=== PATIENT | male | born 1970 | race Caucasian/White ===

== ENCOUNTER 2018-03-08 10:43 | Day surgery (SDC) | payer OTHER, SELFPAY ==
[2018-02-26 15:14] VITALS: BMI 36.4
[2018-03-08] VITALS (7 sets, daily range): BP systolic 124–163; BP diastolic 59–98; PULSE 61–68; RESP 16; TEMP 36.4–36.9; O2SAT 93–100; BMI 36.0
--- NOTE | 2018-03-08 12:00 | IMM_PTH ---
PATIENT: JASMINE ANGLIN LOC: EN U#:[id number] AGE/SX: 47/M ROOM: RE03/08/[address]: Dr. Jasmine Bhandari MD : 1970 BED: DIS: 03/08/2018 SPEC #: [id number] RECD: 03/10/18 07:51 STATUS: SE REDarek #: [id number] VENKATESH: 03/08/18 12:[address]: Jasmine Bhandari DEPT: IMMUNOHISTOCHEMISTRY RECD BY: Concepcion Wilson ENTERED: 03/10/18 07:52 SP TYPE: IMMUNO OTHR DR: Dr. Julianne Camarena MD Tissues: B - Stomach, NOS Procedures: H Pylori (initial) PHYSICIAN & INSTITUTION [place] [id number] SPECIMEN INFORMATION: Tissue Source: B - Antrum biopsy Clinical Info: Epigastric pain Specimen Number: [id number] CPT code: 60563 METHODOLOGY: Deparaffinized sections of prefer/formalin-fixed tissue or PAP/DQ stained slides are incubated with monoclonal/polyclonal antibodies/oligonucleotide probes. Localization is made via biotin free immunoperoxidase method. Appropriate controls are performed and reacted as expected. Results on target cell population are indicated in the following table: RESULTS: ANTIBODY / CLONE RESULT Block B H Pylori (polyclonal) negative These tests were developed and their performance characteristics determined by [facility]. They may not have been cleared or approved by the U.S. Food and Drug Administration. The FDA has determined that such clearance or approval is not necessary. INTERPRETATION: B. Antrum, biopsy: Negative for Helicobacter pylori organisms. SJ:cele 03/10/18
--- NOTE | 2018-03-08 12:00 | EGD_PTH ---
PATIENT: JASMINE ANGLIN LOC: EN U#:[id number] AGE/SX: 47/M ROOM: RE03/08/[address]: Dr. Jasmine Bhandari MD : 1970 BED: DIS: 03/08/2018 SPEC #: [id number] RECD: 03/08/18 12:38 STATUS: SE VAUGHN #: [id number] VENKATESH: 03/08/18 12:[address]: Jasmine Bhandari DEPT: SURGICAL PATHOLOGY RECD BY: Mark Rogers ENTERED: 03/08/18 13:23 SP TYPE: EGD BIOPSY OTHR DR: Dr. Julianne Camarena MD Tissues: A - Duodenum, NOS B - Gastric mucous membrane C - Esophageal mucous membrane D - Esophageal mucous membrane Procedures: Special Stain Group II Surgery Specimen Level IV Alcian Blue/PAS (control) HEADER OPERATION: Colonoscopy (MOD) PRE-OP DIAGNOSIS: Epigastric pain TISSUE SUBMITTED: A - Duodenum biopsy, B - Antrum biopsy for H. pylori and path, C - Distal esophagus biopsy, D - Mid esophagus biopsy MICROSCOPIC DIAGNOSIS A. Duodenum, biopsy: Fragments of duodenal mucosa with focal ulceration and associated acute inflammation and mild Sam gland hyperplasia. B. Antrum, biopsy: Mild gastritis. See microscopic description and comment. C. Distal esophagus, biopsy: Fragments of gastroesophageal mucosa with chronic inflammation. Intestinal metaplasia (goblet cell metaplasia) is not identified. See comment. D. Mid esophagus, biopsy: Fragments of squamous epithelium, no pathologic diagnosis. SJ:cele 03/10/18 COMMENT B. The results of immunohistochemistry for Helicobacter pylori will be reported separately ([id number]). C. Alcian blue/PAS stain with matched control is used in the evaluation of the specimen. The specimen predominantly consists of squamous epithelium. MICROSCOPIC DESCRIPTION Slides are reviewed. B. The specimen shows fragments of gastric mucosa with chronic inflammatory cell infiltrates in the lamina propria consisting of lymphocytes and plasma cells, consistent with mild chronic gastritis. GROSS DESCRIPTION A - Received in fixative is one container labeled with the patient's name and designated duodenal biopsy. The specimen consists of two irregular fragments of light mota soft tissue that in aggregate measure 0.6 x 0.6 x 0.1 cm. The specimen is totally submitted in one cassette. B - Received in fixative is one container labeled with the patient's name and designated antrum biopsy. The specimen consists of one irregular fragment of light mota soft tissue that measures 0.3 x 0.3 x 0.1 cm. The specimen is totally submitted in one cassette. C - Received in fixative is one container labeled with the patient's name and designated distal esophagus biopsy. The specimen consists of multiple irregular fragments of light mota soft tissue that in aggregate measure 1.5 x 0.5 x 0.1 cm. The specimen is totally submitted in one cassette. D - Received in fixative is one container labeled with the patient's name and designated mid esophagus biopsy. The specimen consists of two irregular fragments of light mota soft tissue that in aggregate measure 0.6 x 0.2 x 0.1 cm. The specimen is totally submitted in one cassette. / AM:cele 03/08/18 TC:2 CPT: 17523 x4, 91442
--- NOTE | 2018-03-08 12:19 | OP.ENDO_ITS ---
Patient Name: Jimmie Murrell Procedure Date: 03/08/2018 11:51 AM Date of : 1970 Age: 47 Procedure: Upper GI endoscopy Indications: Epigastric abdominal pain Providers: Jimmie Bhandari MD Referring MD: Jimmie Bhandari MD Medicines: Midazolam 4.5 mg IV, Meperidine 100 mg IV Complications: No immediate complications. Procedure: Pre-Anesthesia Assessment: - Prior to the procedure, a History and Physical was performed, and patient medications and allergies were reviewed. The patient's tolerance of previous anesthesia was also reviewed. The risks and benefits of the procedure and the sedation options and risks were discussed with the patient. All questions were answered, and informed consent was obtained. Prior Anticoagulants: The patient has taken no previous anticoagulant or antiplatelet agents. ASA Grade Assessment: II - A patient with mild systemic disease. After reviewing the risks and benefits, the patient was deemed in satisfactory condition to undergo the procedure. After obtaining informed consent, the endoscope was passed under direct vision. Throughout the procedure, the patient's blood pressure, pulse, and oxygen saturations were monitored continuously. The gastroscope was introduced through the mouth, and advanced to the second part of duodenum. The upper GI endoscopy was accomplished without difficulty. The patient tolerated the procedure well. Moderate Sedation: Moderate (conscious) sedation was personally administered by the endoscopist. The following parameters were monitored: oxygen saturation, heart rate, blood pressure, and response to care. Total physician intraservice time was 15 minutes. Scope In: 12:06:06 PM Scope Out: 12:13:29 PM Total Procedure Duration Time 0 hours 7 minutes 23 seconds Findings: LA Grade A (one or more mucosal breaks less than 5 mm, not extending between tops of 2 mucosal folds) esophagitis with no bleeding was found 42 cm from the incisors. Biopsies were taken with a cold forceps for histology. The Z-line was variable and was found 42 cm from the incisors. Diffuse mildly erythematous mucosa without bleeding was found in the gastric antrum. Biopsies were taken with a cold forceps for histology. The examined duodenum was normal. Biopsies were taken with a cold forceps for histology. The mid esophagus was normal. Biopsies were taken with a cold forceps for histology. Impression: - LA Grade A reflux esophagitis. Biopsied. Very small hiatal hernia - Z-line variable, 42 cm from the incisors. - Erythematous mucosa in the antrum. Biopsied. - Normal examined duodenum. Biopsied. - Normal mid esophagus. Biopsied. Recommendation: - Discharge patient to home. - Resume previous diet. - Continue present medications. - Telephone my office for pathology results in 1 week. Endoscopic findings were mild but not competely normal. Might correlate with symptoms. Will await pathology Procedure Code(s): --- Professional --- 36737, Esophagogastroduodenoscopy, flexible, transoral; with biopsy, single or multiple 64725, 59, Moderate sedation services provided by the same physician or other qualified health director day care center performing the diagnostic or therapeutic service that the sedation supports, requiring the presence of an independent trained observer to assist in the monitoring of the patient's level of consciousness and physiological status; initial 15 minutes of intraservice time, patient age 5 years or older Diagnosis Code(s): --- Professional --- K21.0, Gastro-esophageal reflux disease with esophagitis K22.8, Other specified diseases of esophagus K31.89, Other diseases of stomach and duodenum R10.13, Epigastric pain CPT copyright 2017 [employer]. All rights reserved. The codes documented in this report are preliminary and upon hcc coders review may be revised to meet current compliance requirements. Jimmie Bhandari MD 03/08/2018 12:19:16 PM This report has been signed electronically. Number of Addenda: 0 Note Initiated On: 03/08/2018 11:51 AM
== END 2018-03-08 13:16 | disposition home or self-care (01) ==
LOC: EN 10:44 → AC 10:46
PROVIDERS: Referring Provider Surgery; Visit Provider Surgery
PROC: 0DJD8ZZ Inspection of Lower Intestinal Tract, Via Natural or Artificial Opening Endoscopic (ICD-10-PCS; CPT 45378; principal; 2018-03-08 11:55)
DX: K21.0 Gastro-esophageal reflux disease with esophagitis (principal); K29.50 Unspecified chronic gastritis without bleeding; K31.89 Other diseases of stomach and duodenum; K44.9 Diaphragmatic hernia without obstruction or gangrene; R10.13 Epigastric pain; Z87.891 Personal history of nicotine dependence
CPT/HCPCS: 43239; 88305; 88313; 88342; 99152; 99153; J7120

== ENCOUNTER 2019-10-24 06:29 | Day surgery (SDC) | payer OTHER, SELFPAY ==
[2018-03-08 11:06] VITALS: BMI 36.0
[2019-10-24] VITALS (8 sets, daily range): BP systolic 101–143; BP diastolic 57–85; PULSE 57–73; RESP 16; TEMP 36.3–37.1; O2SAT 95–100; BMI 37.4
[2019-10-24] MEDS: Lactated Ringers 1,000 ML 100 ML IV (07:19)
--- NOTE | 2019-10-24 07:50 | HP.PCM_ITS ---
Problem List (1) Screening for intestinal cancer Status: Acute History of Present Illness Date of Admission: 10/24/19 The patient is a 49 year old M who presents for screening colonoscopy today. He believes he had one in 2006 when I assisted him with a hemorrhoidectomy. He denies bright red blood per rectum or melena. No family history of colon cancer. He otherwise states that he enjoys stable health. He presents on his own volition through our open access. Past Medical History Medical History: Medical History (Last Reviewed 02/26/18 @ 15:13 by Rachana Cannon) Epigastric pain (Acute) R10.13 Epigastric abdominal pain R10.13 GERD (gastroesophageal reflux disease) K21.9 Allergies No Known Allergies Allergy (Unverified 10/21/19 11:36) Home Medications: Ambulatory Orders Medication Instructions Recorded lisinopril 20 mg tablet 20 mg PO DAILY 02/26/18 Esomeprazole Magnesium [Nexium] 20 mg PO DAILY 10/21/19 Surgical History: Surgical History (Last Reviewed 02/26/18 @ 15:13 by Rachana Cannon) History of hemorrhoidectomy Z98.890 History of hernia repair Z98.890, Z87.19 Smoking Status: Current every day smoker Tobacco Use: Chew Review of Systems Constitutional: Denies: Fever Cardiovascular: Denies: Chest Pain Respiratory: Denies: Cough Gastrointestinal: Denies: Abdominal Pain, Melena VTE Information - Inpt Only VTE Present on Admission: No Patient Problems: Active and Suspected Problems (Last Reviewed 02/26/18 @ 15:13 by Rachana Cannon) Screening for intestinal cancer (Acute) - Physical Exam Vitals/I&O's: Vital Signs Temp Pulse BP Pulse Ox 97.3 F L 64 143/76 H 96 10/24/19 07:01 10/24/19 07:01 10/24/19 07:01 10/24/19 07:01 Oxygen Delivery Method Room Air Weight: 246 lb 0.574 oz Body Mass Index (BMI) 37.4 General: Alert, Oriented x3, Cooperative, No apparent distress Oral: Moist Mucosa Lungs: Clear to auscultation, Normal air movement Cardiovascular: Regular rate, Regular Rhythm Abdomen: Bowel Sounds Present, Soft, Non Tender Extremities: No Calf Tenderness Neurological: - - Normal cognition Psych/Mental Status: Normal Affect Current Medications Lactated Ringer's () 1,000 mls @ 100 mls/hr IV .Q10H RICHARD Last Admin: 10/24/19 07:19 Dose: 100 mls/hr Documented by: Assessment/Plan All Active Problems (Last Reviewed 02/26/18 @ 15:13 by Rachana Cannon) Screening for intestinal cancer (Acute) Epigastric pain (Acute) I recommended the patient a screening colonoscopy with possible biopsy or polypectomy is indicated. He is aware of the technique, benefit, risk, alternatives. He has had an opportunity to ask and have questions answered. We will proceed as noted. He presents via open access. Procedure Criteria Procedure Type: Elective COVID Risk Discussion: The surgeon/proceduralist and patient have discussed in detail the risk of exposure to and/or potential harm posed by the COVID-19 virus with having a surgery/procedure at this time versus the risk of delaying the surger y/procedure. It is not possible to know either the risk of delaying the surgery or procedure or chance of getting an infection with perfect accuracy, but a joint decision was made between the patient and the surgeon/proceduralist to proceed at this time with the scheduled surgery/procedure as indicated on the consent form.
--- NOTE | 2019-10-24 08:17 | OP.COLON_ITS ---
Patient Name: Jimmie Murrell Procedure Date: 10/24/2019 7:47 AM Date of : 1970 Age: 49 Procedure: Colonoscopy Indications: Screening for colorectal malignant neoplasm Providers: Jimmie Bhandari MD Referring MD: Julianne Camarena Md Medicines: Midazolam 4.5 mg IV, Meperidine 100 mg IV, Diphenhydramine 25 mg IV Patient Profile: Last Colonoscopy: more than 10 years ago. Complications: No immediate complications. Procedure: Pre-Anesthesia Assessment: - Prior to the procedure, a History and Physical was performed, and patient medications and allergies were reviewed. The patient's tolerance of previous anesthesia was also reviewed. The risks and benefits of the procedure and the sedation options and risks were discussed with the patient. All questions were answered, and informed consent was obtained. Prior Anticoagulants: The patient has taken no previous anticoagulant or antiplatelet agents. ASA Grade Assessment: II - A patient with mild systemic disease. After reviewing the risks and benefits, the patient was deemed in satisfactory condition to undergo the procedure. After I obtained informed consent, the scope was passed under direct vision. Throughout the procedure, the patient's blood pressure, pulse, and oxygen saturations were monitored continuously. The adult colonoscope was introduced through the anus and advanced to the cecum, identified by appendiceal orifice and ileocecal valve. The colonoscopy was performed without difficulty. The patient tolerated the procedure well. The quality of the bowel preparation was good. The ileocecal valve and the appendiceal orifice were photographed. Moderate Sedation: Moderate (conscious) sedation was administered by the endoscopy nurse and supervised by the endoscopist. The following parameters were monitored: oxygen saturation, heart rate, blood pressure, and response to care. Total physician intraservice time was 15 minutes. Scope In: 8:00:56 AM Scope Withdrawal Time 0 hours 6 minutes 28 seconds Scope Out: 8:12:10 AM Total Procedure Duration Time 0 hours 11 minutes 14 seconds Findings: Hemorrhoids were found on perianal exam. Normal prostate. A few diverticula were found in the sigmoid colon. The exam was otherwise without abnormality. Impression: - Hemorrhoids found on perianal exam. - Diverticulosis in the sigmoid colon. - The examination was otherwise normal. - No specimens collected. Recommendation: - Discharge patient to home. - Resume previous diet. - Continue present medications. - Repeat colonoscopy in 10 years for screening purposes. Procedure Code(s): --- Professional --- 53506, Colonoscopy, flexible; diagnostic, including collection of specimen(s) by brushing or washing, when performed (separate procedure) 99870, 59, Moderate sedation services provided by the same physician or other qualified health primary health care nurse performing the diagnostic or therapeutic service that the sedation supports, requiring the presence of an independent trained observer to assist in the monitoring of the patient's level of consciousness and physiological status; initial 15 minutes of intraservice time, patient age 5 years or older Diagnosis Code(s): --- Professional --- Z12.11, Encounter for screening for malignant neoplasm of colon K64.9, Unspecified hemorrhoids K57.30, Diverticulosis of large intestine without perforation or abscess without bleeding CPT copyright 2017 [employer]. All rights reserved. The codes documented in this report are preliminary and upon outbound sales representative review may be revised to meet current compliance requirements. Jimmie Bhandari MD 10/24/2019 8:17:07 AM This report has been signed electronically. Number of Addenda: 0 Note Initiated On: 10/24/2019 7:47 AM
--- NOTE | 2019-10-24 08:17 | OP.CCLET_ITS ---
10/24/2019 Julianne Camarena Md Re : Colonoscopy procedure for Jimmie Murrell Dear [place] This procedure was performed on Thursday, October 24, 2019. My impressions and recommendations are as follows: Impressions : - Hemorrhoids found on perianal exam. - Diverticulosis in the sigmoid colon. - The examination was otherwise normal. - No specimens collected. Recommendations : - Discharge patient to home. - Resume previous diet. - Continue present medications. - Repeat colonoscopy in 10 years for screening purposes. My findings are described in the full procedure note, which is enclosed. If I can be of further assistance, please feel free to contact me at Doctor phone number(s): Work: . Sincerely, Jimmie Bhandari MD 10/24/2019 8:17:07 AM This report has been signed electronically.
== END 2019-10-24 08:55 | disposition home or self-care (01) ==
LOC: EN 06:32 → AC 06:32
PROVIDERS: PCP Family Medicine; Referring Provider Family Medicine; Visit Provider Surgery
PROC: 0DJD8ZZ Inspection of Lower Intestinal Tract, Via Natural or Artificial Opening Endoscopic (ICD-10-PCS; CPT 45378; principal; 2019-10-24 07:40)
DX: Z12.11 Encounter for screening for malignant neoplasm of colon (principal); K57.30 Diverticulosis of large intestine without perforation or abscess without bleeding; K64.9 Unspecified hemorrhoids; Z11.59 Encounter for screening for other viral diseases; K21.9 Gastro-esophageal reflux disease without esophagitis; F17.200 Nicotine dependence, unspecified, uncomplicated; Z79.899 Other long term (current) drug therapy
CPT/HCPCS: 45378; 87635; 94799; 99152; 99153; J7120; U0003